=== PATIENT | female | born 1995 | race Caucasian/White ===

== ENCOUNTER 2018-04-19 14:28 | Emergency (ER) | payer OTHER ==
--- NOTE | 2018-04-19 14:40 | EDPHY ---
H & P Time Seen by Provider: 04/19/18 14:36 HPI/ROS: CHIEF COMPLAINT: Limited trauma activation, head injury, repetitive questioning , right shoulder pain HISTORY OF PRESENT ILLNESS: The patient is brought in by paramedics as limited trauma activation. The patient reportedly was skiing today. She fell off an embankment which was steep reportedly tumbling 50 ft. The patient reportedly has had repetitive questioning. She received 100 mcg of fentanyl by paramedics. Patient presents to the ED complaining of a mild occipital headache. She denies any cervical spine pain. She complains of right scapular pain. The patient denies abdominal pain, difficulty breathing or focal neurologic symptoms. She has mild pain in her right knee. The patient denies significant past medical history. REVIEW OF SYSTEMS: A comprehensive 10 point review of systems is otherwise negative aside from elements mentioned in the history of present illness. Source: Patient, EMS Exam Limitations: No limitations - Medical/Surgical History PMH: Past medical history: Noncontributory - Family History Significant Family History: No pertinent family hx - Social History Smoking Status: Never smoked - Physical Exam Exam: General Appearance: Alert, no distress Head: Atraumatic Eyes: Pupils equal, round, reactive ENT, Mouth: No hemotympanum, no oral trauma Neck: Nontender, trachea midline, cleared via nexus criteria Respiratory: No chest wall tender, no subcutaneous air, lungs clear bilaterally Cardiovascular: Regular rate and rhythm Abdomen: Abdomen is soft and nontender, pelvis stable Skin: No lacerations, No abrasion Back: No midline T/L/S pain Extremities: Tenderness to palpation right knee above the patella, tenderness to palpation over right scapula Neurological: A&Ox3, normal motor function, normal sensory exam, repetitive questioning, amnestic Constitutional: Initial Vital Signs Temperature (C) 36.4 C 04/19/18 15:00 Heart Rate 112 H 04/19/18 15:00 Respiratory Rate 16 04/19/18 15:00 Blood Pressure 130/79 H 04/19/18 15:00 O2 Sat (%) 97 04/19/18 15:00 O2 Delivery Mode Room Air Allergies/Adverse Reactions: No Known Allergies Allergy (Unverified 04/19/18 14:57) Home Medications: Medication Instructions Recorded Ortho Tri-Cyclen Lo Tablet 04/19/18 Medical Decision Making - Diagnostics Imaging Results: Imaging Impressions Chest X-Ray 04/19/18 14:43 Impression: Suspect scapular fracture. 2. Right Scapula, 2 views History: Trauma, ski injury, pain Findings: There is a nondisplaced transverse fracture coursing through the base of the scapular wing. The humeral head is well rounded and normally located in the glenoid. The AC joint looks intact. Impression: Nondisplaced oblique scapular fracture. 3. Right knee, 5 views including a sunrise view History: Pain, ski injury Findings: No fracture, malalignment or knee joint effusion is identified. The patella is intact and normally aligned. Impression: Negative Head CT 04/19/18 14:43 Impression: Minimal chronic sinus related change. Otherwise unremarkable CT of the head without contrast. Results called and discussed with Dr. Ulysses Meza at 04/19/2018 15:29. Knee X-Ray 04/19/18 14:44 Impression: Suspect scapular fracture. 2. Right Scapula, 2 views History: Trauma, ski injury, pain Findings: There is a nondisplaced transverse fracture coursing through the base of the scapular wing. The humeral head is well rounded and normally located in the glenoid. The AC joint looks intact. Impression: Nondisplaced oblique scapular fracture. 3. Right knee, 5 views including a sunrise view History: Pain, ski injury Findings: No fracture, malalignment or knee joint effusion is identified. The patella is intact and normally aligned. Impression: Negative Scapula X-Ray 04/19/18 14:44 Impression: Suspect scapular fracture. 2. Right Scapula, 2 views History: Trauma, ski injury, pain Findings: There is a nondisplaced transverse fracture coursing through the base of the scapular wing. The humeral head is well rounded and normally located in the glenoid. The AC joint looks intact. Impression: Nondisplaced oblique scapular fracture. 3. Right knee, 5 views including a sunrise view History: Pain, ski injury Findings: No fracture, malalignment or knee joint effusion is identified. The patella is intact and normally aligned. Impression: Negative ED Course/Re-evaluation: Patient presents the emergency department as a limited trauma activation after a fall skiing. Patient did strike her head had unknown loss of consciousness has had repetitive questioning and complains of a mild headache. The patient was taken for a noncontrast head CT scan which demonstrates no evidence of an intracranial hemorrhage or skull fracture. I did clear the patient's cervical spine via nexus criteria. The patient also had tenderness to palpation in her right scapula and right knee. Radiographs of those areas have been ordered. Chest x-ray demonstrates no evidence of a rib fracture pneumothorax. She does have a nondisplaced right scapular fracture. Dedicated scapular films confirm this fracture. The patient's knee demonstrates no evidence of an obvious fracture. Patient underwent serial examinations in the ED. She will be placed in a sling. Mentation is improving. Patient will be discharged home with concussion aftercare instructions and orthopedic follow-up. - Data Points Laboratory Results: 04/19/18 14:39 POC Hgb 14.6 gm/dL gm/dL (12.6-16.3) POC Hct 43 % % (38-47) POC Sodium 142 mEq/L mEq/L (135-145) POC Potassium 4.3 mEq/L mEq/L (3.3-5.0) POC Chloride 106 mEq/L mEq/L (97-110) POC Total CO2 21 mEq/L L mEq/L (22-31) POC BUN 14 mg/dL mg/dL (7-23) POC Creatinine 0.7 mg/dL mg/dL (0.6-1.0) POC Glucose 107 mg/dL H mg/dL (70-100) Point of Care Test Results: Chemistry 04/19/18 14:39 POC Sodium 142 mEq/L mEq/L (135-145) POC Potassium 4.3 mEq/L mEq/L (3.3-5.0) POC Chloride 106 mEq/L mEq/L (97-110) POC Total CO2 21 mEq/L L mEq/L (22-31) POC BUN 14 mg/dL mg/dL (7-23) POC Creatinine 0.7 mg/dL mg/dL (0.6-1.0) POC Glucose 107 mg/dL H mg/dL (70-100) ISTAT H&H 04/19/18 14:39 POC Hgb 14.6 gm/dL gm/dL (12.6-16.3) POC Hct 43 % % (38-47) Departure - Departure Disposition: Home, Routine, Self-Care Clinical Impression: Concussion, Scapular fracture Condition: Good Instructions: Scapular Fracture (ED), Concussion (ED) Additional Instructions: 1. Take Ibuprofen or Motrin 600 mg by mouth three times a day. 2. Sling as needed for discomfort 3. Follow up with the orthopedic surgeon, Dr. Leigh, you have been referred to for further evaluation of your scapular fracture. 4. Concussion aftercare as directed. Please follow up with our concussion specialist Dr. Lancaster for any ongoing headache, confusion or cognitive changes past 3-5 days. Referrals: Macie Leigh MD [Medical Doctor] - As per Instructions Kelley Lancaster MD [Medical Doctor] - As per Instructions
[2018-04-19] MEDS ORDERED: ONDANSETRON 4MG PREPACK#2 BTL TAKEHOME ONE (16:26)
[2018-04-19] MEDS ORDERED: ONDANSETRON DISINTEGRATING 4 MG TAB ONE (16:40)
[2018-04-19] MEDS ORDERED: ONDANSETRON DISINTEGRATING 4 MG TAB PO ONE (16:41)
[2018-04-19 16:54] VITALS: BP 103/62
== END 2018-04-19 16:53 | disposition home or self-care (01) ==
DX: S06.0X0A Concussion without loss of consciousness, initial encounter (principal); S42.191A Fracture of other part of scapula, right shoulder, initial encounter for closed fracture; V00.321A Fall from snow-skis, initial encounter; Y93.23 Activity, snow (alpine) (downhill) skiing, snowboarding, sledding, tobogganing and snow tubing; Y92.838 Other recreation area as the place of occurrence of the external cause; Y99.8 Other external cause status
CPT/HCPCS: 82435-PO; 82565-PO; 82947-PO; 84132-PO; 84295-PO; 84520-PO; 85014-ER